=== PATIENT | male | born 2000 | race Caucasian/White ===

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

== ENCOUNTER 2024-11-27 17:45 | Emergency (ER) | payer BC, MEDICAID ==
[2024-11-27 17:48] VITALS: BP 153/82; PULSE 88
[2024-11-27] MEDS: Lidocaine 1% 5 ML VIAL INJECT ONE (18:12)
[2024-11-27] MEDS: Bacitracin Oint 1 GM U/D Packet TOP ONE (18:14)
[2024-11-27] MEDS: Diphtheria,Pertussis(Acell),Tetanus Vaccine 0.5 ML Syringe IM ONE (18:15)
== END 2024-11-27 18:32 | disposition home or self-care (01) ==
LOC: CC.ED 17:45
DX: S61.211A Laceration without foreign body of left index finger without damage to nail, initial encounter (principal); W26.8XXA Contact with other sharp object(s), not elsewhere classified, initial encounter; Z23 Encounter for immunization
CPT/HCPCS: 12002; 90471; 90715; 99282-25; 99283